=== PATIENT | male | born 1990 | race Hispanic/Latino ===

== ENCOUNTER 2018-10-17 20:11 | Emergency (ER) | payer OTHER | END 2018-10-17 21:13 | disposition home or self-care (01) | LOC: EDH 20:11 | DX: S80.02XA Contusion of left knee, initial encounter (principal); S80.01XA Contusion of right knee, initial encounter; V49.59XA Passenger injured in collision with other motor vehicles in traffic accident, initial encounter; Y93.89 Activity, other specified; Y92.410 Unspecified street and highway as the place of occurrence of the external cause; Y99.8 Other external cause status | CPT/HCPCS: 73560 ==

== ENCOUNTER 2019-04-21 17:54 | Emergency (ER) | payer OTHER ==
[2019-04-21] MEDS ORDERED: LIDOCAINE 5% TOPICAL PATCH TP ONE (18:44)
[2019-04-21] MEDS ORDERED: IBUPROFEN 800 MG TAB ONE (18:44)
[2019-04-21] MEDS ORDERED: CYCLOBENZAPRINE HCL 10 MG TABLET ONE (18:45)
== END 2019-04-21 19:46 | disposition home or self-care (01) ==
LOC: EDH 17:54
DX: M54.5 Low back pain (principal); F90.9 Attention-deficit hyperactivity disorder, unspecified type; Z88.8 Allergy status to other drugs, medicaments and biological substances; V49.49XA Driver injured in collision with other motor vehicles in traffic accident, initial encounter; Y93.89 Activity, other specified; Y92.89 Other specified places as the place of occurrence of the external cause; Y99.8 Other external cause status

== ENCOUNTER 2024-03-12 14:26 | Emergency (ER) | payer SELFPAY ==
[~2024-03-12] VITALS: Ht 175.3 cm; Wt 95.3 kg
--- NOTE | 2024-03-12 15:15 | EKG ---
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
[2024-03-12 15:18] LABS: BASOPHILS # (AUTO) 0.04 K/uL (0.00-0.20); BASOPHILS % (AUTO) 0.3 % (0.0-5.0); EOSINOPHILS # (AUTO) 0.07 K/uL (0.00-0.70); EOSINOPHILS % (AUTO) 0.6 % (0.0-8.0); HEMATOCRIT 41.9 % (42-54); IMMATURE GRANULOCYTE ABSOLUTE 0.05 K/uL (0-1); LYMPHOCYTES # (AUTO) 1.8 K/uL (1.0-4.8); LYMPHOCYTES % (AUTO) 15.1 % (21.0-51.0); MEAN CORPUSCULAR HEMOGLOBIN 29.9 pg (27.0-33.0); MEAN CORPUSCULAR HGB CONC 34.6 g/dL (32.0-36.0); MEAN CORPUSCULAR VOLUME 86.4 fL (79-99); MONOCYTES # (AUTO) 0.5 K/uL (0.1-1.0); MONOCYTES % (AUTO) 4.5 % (3.0-13.0); NEUTROPHILS # (AUTO) 9.4 K/uL (1.8-7.7); NEUTROPHILS % (AUTO) 79.1 % (40.0-77.0); PLATELET COUNT (AUTO) 297 K/uL (130-400); RED BLOOD CELL COUNT(AUTO) 4.85 MIL/uL (4.50-6.20); WHITE BLOOD COUNT (AUTO) 11.8 K/uL (4.8-10.8)
[2024-03-12 15:23] LABS: APPEARANCE,URINE CLEAR (CLEAR); BILIRUBIN,URINE NEGATIVE (NEGATIVE); COLOR,URINE YELLOW (YELLOW); GLUCOSE, URINE (UA) NEGATIVE (NEGATIVE); KETONES,URINE 20 mg/dL (NEGATIVE); LEUKOCYTE ESTERASE ,URINE NEGATIVE Leu/uL (NEGATIVE); NITRATE,URINE NEGATIVE (NEGATIVE); OCCULT BLOOD,URINE NEGATIVE (NEGATIVE); PROTEIN,URINE 10 mg/dL (NEGATIVE); UROBILINOGEN,URINE 0.2 mg/dL (0.2-1.0)
[2024-03-12 15:27] LABS: MUCUS,URINE FEW LPF (None Seen); RBC,URINE 0-1 /HPF (0-1)
[2024-03-12 15:31] LABS: AMPHET/METH SCREEN,URINE NEGATIVE (NEGATIVE); BARBITURATE SCREEN, URINE NEGATIVE (NEGATIVE); BENZODIAZEPINES SCREEN,URINE NEGATIVE (NEGATIVE); CANNABINOID SCREEN,URINE POSITIVE (NEGATIVE); COCAINE SCREEN,URINE NEGATIVE (NEGATIVE); OPIATE SCREEN,URINE NEGATIVE (NEGATIVE); PHENCYCLIDINE SCREEN,URINE NEGATIVE (NEGATIVE)
[2024-03-12 15:31] LABS: CREATININE 0.8 mg/dL (0.5-1.3); POTASSIUM 3.8 mmol/L (3.5-5.1)
--- NOTE | 2024-03-12 15:35 | HMCIMG ---
Exam Type: CHEST 1VW Clinical Information: Chest pain Comparison: None Findings: The lungs are clear of infiltrates. The heart is normal in size. The bony and soft tissue structures of the chest are unremarkable. Impression: Clear lungs.
[2024-03-12 15:36] LABS: ALBUMIN 3.5 g/dL (3.5-5.0); BILIRUBIN,TOTAL 0.4 mg/dL (0.2-1.0); TOTAL PROTEIN, SERUM 6.5 g/dL (6.0-8.3)
[2024-03-12] MEDS ORDERED: POLY17PO4 PO (16:03)
--- NOTE | 2024-03-12 16:03 | ERN ---
General Chief Complaint: Multiple Complaints Stated Complaint: MULTIPLE COMPLAINTS Time Seen by MD: 14:28 Time Seen by Midlevel: 14:28 Source: patient History of Present Illness Initial Comments 33-year-old male who presents to the ED due to not feeling well. Patient reports he woke up feeling his mouth dry, chest pain, abdominal pain, states he has been having some constipation denies any fever, vomiting or further associated symptoms. Denies significant past medical history. Allergies: Coded Allergies: No Known Allergies (Unverified Allergy, Unknown, 10/17/18) amphetamine (Unverified Allergy, Unknown, 04/21/19) dextroamphetamine (Unverified Allergy, Unknown, 04/21/19) Home Meds Active Scripts Polyethylene Glycol 3350 (Miralax) 17 Gram Powd.pack, 17 GM PO DAILY for 7 Days, #7 PACK Prov:CHIDI KRUGER 03/12/24 Past Medical History Past Medical History: No Pertinent History Past Surgical History: None ROS Dictation Constitutional: Positive for dry mouth Negative for fever,chills, and weight loss Eyes: Negative for injury, pain,redness, and discharge ENT: Negative for injury,pain or swelling Cardiovascular: Positive for chest pain Negative for palpitations, and edema Respiratory: Negative for shortness of breath, cough, and wheezing, Abdomen/GI: Positive for abdominal pain, constipation Negative for nausea, vomiting, diarrhea Back: Negative for injury and pain : Negative for painful urination, bleeding or discharge MS/Extremity: Negative for injury and deformity Skin: Negative for rash, and discoloration Neuro: Negative for headache, weakness, numbness, tingling, and seizure Psych: Negative for suicide ideation, homicidal ideation, and hallucinations Physical Exam Physical Exam Dictation General: awake, alert, no acute distress Head/Face: Normocephalic, atraumatic Eyes: PERRL, EOMI, normal conjunctiva ENT: oral cavity clear, oral mucosa moist Neck: Normal range of motion Cardiovascular: RRR, normal S1/S2 Respiratory: CTAB, no respiratory distress, No rales or wheezes Abdomen: Soft, non-tender, non-distended, no guarding or rebound. Skin: Warm, dry, normal turgor, no rash MS/Extremity: Pulses equal, no cyanosis, neurovascular intact, FROM Neuro: COAx4, GCS 15, normal gait Psych: Normal behavior, mood, and affect normal Results Laboratory and Microbiology Lab and Micro Result Laboratory Tests Test 03/12/24 14:39 03/12/24 15:09 Urine Color YELLOW (YELLOW) Urine Appearance CLEAR (CLEAR) Urine pH 6.0 (5.0-8.0) Urine Specific [place] 1.021 (1.001-1.031) Urine Protein 10 mg/dL (NEGATIVE) H Urine Glucose (UA) NEGATIVE mg/dL (NEGATIVE) Urine Ketones 20 mg/dL (NEGATIVE) H Urine Occult Blood NEGATIVE (NEGATIVE) Urine Nitrate NEGATIVE (NEGATIVE) Urine Bilirubin NEGATIVE mg/dL (NEGATIVE) Urine Urobilinogen 0.2 mg/dL (0.2-1.0) Urine Leukocyte Esterase NEGATIVE Jeff/uL Urine RBC 0-1 /HPF (0-1) Urine WBC 2-5 /HPF (0-1) H Urine Bacteria None /HPF (None Seen) Urine Opiates Screen NEGATIVE (NEGATIVE) Urine Barbiturates Screen NEGATIVE (NEGATIVE) Urine Phencyclidine Screen NEGATIVE (NEGATIVE) Urine Amphetamines Screen NEGATIVE (NEGATIVE) Urine Benzodiazepines Screen NEGATIVE (NEGATIVE) Urine Cocaine Screen NEGATIVE (NEGATIVE) Urine Marijuana (THC) Screen POSITIVE (NEGATIVE) H White Blood Count 11.8 K/uL (4.8-10.8) H Red Blood Count 4.85 MIL/uL (4.50-6.20) Hemoglobin 14.5 g/dL (14.0-18.0) Hematocrit 41.9 % (42-54) L Mean Corpuscular Volume 86.4 fL (79-99) Mean Corpuscular Hemoglobin 29.9 pg (27.0-33.0) Mean Corpuscular Hemoglobin Concent 34.6 g/dL (32.0-36.0) Red Cell Distribution Width 13.0 % (11.0-15.5) Platelet Count 297 K/uL (130-400) Mean Platelet Volume 10.1 fL (7.5-10.5) Immature Granulocyte % (Auto) 0.4 % (0-1) Neutrophils (%) (Auto) 79.1 % (40.0-77.0) H Lymphocytes (%) (Auto) 15.1 % (21.0-51.0) L Monocytes (%) (Auto) 4.5 % (3.0-13.0) Eosinophils (%) (Auto) 0.6 % (0.0-8.0) Basophils (%) (Auto) 0.3 % (0.0-5.0) Neutrophils # (Auto) 9.4 K/uL (1.8-7.7) H Lymphocytes # (Auto) 1.8 K/uL (1.0-4.8) Monocytes # (Auto) 0.5 K/uL (0.1-1.0) Eosinophils # (Auto) 0.07 K/uL (0.00-0.70) Basophils # (Auto) 0.04 K/uL (0.00-0.20) Absolute Immature Granulocyte (auto 0.05 K/uL (0-1) Nucleated Red Blood Cells 0.0 % (0.0-0.19) Sodium Level 143 mmol/L (136-145) Potassium Level 3.8 mmol/L (3.5-5.1) Chloride Level 106 mmol/L (101-111) Carbon Dioxide Level 31 mmol/L (21-32) Blood Urea Nitrogen 9 mg/dL (7-18) Creatinine 0.8 mg/dL (0.5-1.3) Glomerular Filtration Rate Calc 119 mL/min (>90) Random Glucose 107 mg/dL (70-105) H Total Calcium 8.5 mg/dL (8.5-10.1) Total Bilirubin 0.4 mg/dL (0.2-1.0) Aspartate Amino Transf (AST/SGOT) 12 U/L (10-37) Alanine Aminotransferase (ALT/SGPT) 22 U/L (12-78) Alkaline Phosphatase 76 U/L (50-136) Troponin I High Sensitivity 4 ng/L (4-75) Total Protein 6.5 g/dL (6.0-8.3) Albumin 3.5 g/dL (3.5-5.0) Lipase 29 U/L (16-77) Labs Reviewed?: Yes EKG/XRAY/US/CT/MRI EKG Comment Date: 03/12/2024 Time: 15:10 Rate: 85 EKG interpretation: Sinus rhythm, normal EKG, no STEMI Reviewed by ED Attending X-RAY Comment REASON: Chest pain ORDERING PHYSICIAN: CHIDI KRUGER PROCEDURE: CXR1VW - CHEST 1VW Exam Type: CHEST 1VW Clinical Information: Chest pain Comparison: None Findings: The lungs are clear of infiltrates. The heart is normal in size. The bony and soft tissue structures of the chest are unremarkable. Impression: Clear lungs. MDM MDM: Differential diagnosis: Anxiety, chest pain, atypical chest pain, constipation Rationale: 33-year-old male who presents to the ED due to not feeling well. Patient reports he woke up feeling his mouth dry, chest pain, abdominal pain, states he has been having some constipation denies any fever, vomiting or fur ther associated symptoms. Denies significant past medical history. Labs obtained in the ED are nonspecific, chest x-ray indicates no acute abnormalities. EKG within normal limits. Troponin negative. UA negative for urinary tract infection. Drug screen positive for marijuana. Patient was educated on findings and diagnosis. Advised to follow up with PCP. Return to the ED if any worsening symptoms. Patient verbalized understanding. Patient stable for discharge. MiraLax prescribed for outpatient treatment of constipation. There are no social concerns with this patient. I independently interpreted the test that were performed, results were reviewed by me and considered findings on radiology if ordered. Medical management and examination interpretation discussions were had by me with other qualified healthcare professionals as indicated for the patient's care. ED Course Orders Procedure Category Date Status Time Cbc With Differential LAB 03/12/24 Complete 14:57 Comprehensive LAB 03/12/24 Complete Metabolic Panel 14:57 Lipase LAB 03/12/24 Complete 14:57 Urinalysis LAB 03/12/24 Complete W/Microscopic 14:57 Drug Screen Urine LAB 03/12/24 Complete 14:57 Chest 1vw RAD 03/12/24 Resulted 14:57 12 Lead Ekg Tracing- EKG 03/12/24 Resulted Technical 14:57 Troponin I High LAB 03/12/24 Complete Sensitivity 14:57 Vital Signs Date Time Temp Pulse Resp B/P (MAP) Pulse Ox O2 Delivery O2 Flow Rate FiO2 03/12/24 16:07 98.1 77 17 128/72 98 Room Air* 0 21 03/12/24 14:27 97.9 77 18 137/87 98 Room Air DX & DISP Disposition: Discharge Departure Impression: Primary Impression: Constipation Additional Impressions: Atypical chest pain, Abdominal pain Condition: Stable Scripts Polyethylene Glycol 3350 (Miralax) 17 Gram Powd.pack 17 GM PO DAILY for 7 Days, #7 PACK Prov: CHIDI KRUGER 03/12/24 Additional Instructions: Discharge home. Rest. Follow up with primary care DrDaria in 24 hours. Return to the ER for any acute changes or worsening symptoms. If any medications were prescribed take as directed. Okay to continue home medications unless otherwise discussed during your visit in the emergency room today. Patient was also advised to follow-up with primary care physician in 1 to 2 days for continued monitoring. Referrals: SELF,REFERRAL (PCP) I participated in the following activities of this patient's care: For this patient encounter, I reviewed the PA or HUMANITIES PROFESSOR documentation, treatment plan, and medical decision making. I did not have [id number] time with this patient. I will sign as the reviewing DrDaria And agree with the treatment plan and disposition. CHIDI KRUGER Mar 12, 2024 16:03
[2024-03-12 16:07] VITALS: BP 128/72; PULSE 77; RESP 17; TEMP 98; O2SAT 98
== END 2024-03-12 16:20 | disposition home or self-care (01) ==
LOC: EDH 14:26
DX: K59.00 Constipation, unspecified (principal); R07.89 Other chest pain; R10.9 Unspecified abdominal pain
CPT/HCPCS: 36415; 71045; 80053; 80305; 81001; 83690; 84484; 85025; 93005; 99285

== ENCOUNTER 2024-03-27 23:00 | Emergency (ER) | payer SELFPAY ==
[~2024-03-27] VITALS: Ht 175.3 cm; Wt 91.2 kg
[~2024-03-27 23:00] MED LIST: POLY17PO4 PO
--- NOTE | 2024-03-27 23:05 | EKG ---
[facility] Test Date: 2024-03-27 Test Time: 23:02:24 Pat Name: KIKI CLINTON Department: ED Room: Gender: M Manager Personal: [id number] : 1990 Requested By: YEIMI KIMBLE Order Number: [id number] Reading MD: Shad Murphy Measurements Intervals [place] Rate: 76 P: 51 AR: 160 QRS: 5 QRSD: 101 T: 37 QT: 378 QTc: 427 Interpretive Statements Sinus rhythm Compared to ECG 03/12/2024 15:10:13 No significant changes Electronically Signed On 03-28-2024 21:23:28 COMFORT ADVISOR by Shad Murphy Please click the below link to view image of tracing.
[2024-03-27 23:21] LABS: BASOPHILS # (AUTO) 0.08 K/uL (0.00-0.20); BASOPHILS % (AUTO) 0.6 % (0.0-5.0); EOSINOPHILS # (AUTO) 0.26 K/uL (0.00-0.70); HEMATOCRIT 44.7 % (42-54); IMMATURE GRANULOCYTE ABSOLUTE 0.06 K/uL (0-1); LYMPHOCYTES # (AUTO) 2.8 K/uL (1.0-4.8); LYMPHOCYTES % (AUTO) 21.8 % (21.0-51.0); MEAN CORPUSCULAR HEMOGLOBIN 30.5 pg (27.0-33.0); MEAN CORPUSCULAR HGB CONC 35.6 g/dL (32.0-36.0); MEAN CORPUSCULAR VOLUME 85.6 fL (79-99); MONOCYTES # (AUTO) 0.9 K/uL (0.1-1.0); MONOCYTES % (AUTO) 6.7 % (3.0-13.0); NEUTROPHILS # (AUTO) 8.7 K/uL (1.8-7.7); NEUTROPHILS % (AUTO) 68.4 % (40.0-77.0); PLATELET COUNT (AUTO) 347 K/uL (130-400); RED BLOOD CELL COUNT(AUTO) 5.22 MIL/uL (4.50-6.20); RED CELL DISTRIBUTION WIDTH 12.3 % (11.0-15.5); WHITE BLOOD COUNT (AUTO) 12.8 K/uL (4.8-10.8)
[2024-03-27 23:31] LABS: CREATININE 0.8 mg/dL (0.5-1.3); POTASSIUM 3.3 mmol/L (3.5-5.1)
[2024-03-28 00:08] LABS: B-TYPE NATRIURETIC PEPTIDE 9 pg/mL (0-100)
[2024-03-28 00:41] VITALS: BP 138/88; PULSE 97; RESP 16; TEMP 98.7; O2SAT 100
--- NOTE | 2024-03-28 00:42 | NUR ---
PT CALLED FOR V/S RECHECK.
[2024-03-28 01:02] LABS: APPEARANCE,URINE CLOUDY (CLEAR); BILIRUBIN,URINE 0.5 mg/dL (NEGATIVE); COLOR,URINE YELLOW (YELLOW); GLUCOSE, URINE (UA) NEGATIVE (NEGATIVE); KETONES,URINE 100 mg/dL (NEGATIVE); LEUKOCYTE ESTERASE ,URINE NEGATIVE Leu/uL (NEGATIVE); NITRATE,URINE NEGATIVE (NEGATIVE); OCCULT BLOOD,URINE NEGATIVE (NEGATIVE); PROTEIN,URINE 50 mg/dL (NEGATIVE); UROBILINOGEN,URINE 3 mg/dL (0.2-1.0)
[2024-03-28 01:04] LABS: ADD UA MICROSCOPIC YES
[2024-03-28 01:08] LABS: AMPHET/METH SCREEN,URINE NEGATIVE (NEGATIVE); BARBITURATE SCREEN, URINE NEGATIVE (NEGATIVE); BENZODIAZEPINES SCREEN,URINE NEGATIVE (NEGATIVE); CANNABINOID SCREEN,URINE POSITIVE (NEGATIVE); COCAINE SCREEN,URINE NEGATIVE (NEGATIVE); OPIATE SCREEN,URINE NEGATIVE (NEGATIVE); PHENCYCLIDINE SCREEN,URINE NEGATIVE (NEGATIVE)
[2024-03-28 01:26] LABS: MUCUS,URINE MANY LPF (None Seen); WBC,URINE 0-1 /HPF (0-1)
--- NOTE | 2024-03-28 02:22 | NUR ---
PT CALLED, NOT IN LOBBY. SECURITY NOT AWARE OF PT
--- NOTE | 2024-03-28 02:25 | NUR ---
PT NOT LOCAED IN MAIN ER, NOT IN LOBBY. NO COMMUNICATION WITH STAFF BY PATIENT ON DESIRE TO LEAVE
--- NOTE | 2024-03-28 02:26 | NUR ---
CALLED DILSHAD UMANA TO NOTIFY HER OF PT. PER DILSHAD UMANA SHE TOO CALLED PT TO BED HIM WITH NO ANSWER
--- NOTE | 2024-03-28 09:05 | HMCIMG ---
CHEST 1VW REASON: CHEST PAIN COMPARISON: 03/12/2024 FINDINGS: Single view of the chest was obtained. Lungs are clear. Heart size is normal. There is no pulmonary vascular congestion. Mediastinum and bony thorax appear unremarkable. IMPRESSION: 1. Normal single view chest x-ray.
[2024-03-28] MEDS ORDERED: HYDR-3421 PO (19:04)
== END 2024-03-28 02:27 | disposition left against medical advice (07) ==
LOC: EDH 23:00
DX: R07.89 Other chest pain (principal); Z53.21 Procedure and treatment not carried out due to patient leaving prior to being seen by health care provider
CPT/HCPCS: 36415; 71045; 80048; 80305; 81001; 82550; 83880; 84484; 85025; 93005

== ENCOUNTER 2024-03-28 16:59 | Emergency (ER) | payer SELFPAY ==
[~2024-03-28] VITALS: Ht 175.3 cm; Wt 90.7 kg
--- NOTE | 2024-03-28 17:46 | ERN ---
ED Note History of Present Illness Stated Complaint: TINGLING HEAD AND NECK Chief Complaint: Numbness Time Seen by MD: 17:03 Time Seen by Midlevel: 17:03 Dictation: The patient is a 33-year-old male with a history of ADHD who presents to the emergency department with complaint of generalized tingling after a someone at work told him that somebody is grandmother due to a dental infection. Patient reports he felt really anxious after and was concerned about his teeth. Denies any suicidal or homicidal ideations. Patient was seen here yesterday for evaluation of chest pain and left AMA. Allergies: Coded Allergies: No Known Allergies (Unverified Allergy, Unknown, 10/17/18) amphetamine (Unverified Allergy, Unknown, 04/21/19) dextroamphetamine (Unverified Allergy, Unknown, 04/21/19) Home Meds Active Scripts Hydroxyzine HCl (Hydroxyzine HCl) 25 Mg Tablet, 1 TAB PO BID for anxiety for 30 Days, #60 TAB 0 Refills Prov:SHARDA SANCHEZ 03/28/24 Polyethylene Glycol 3350 (Miralax) 17 Gram Powd.pack, 17 GM PO DAILY for 7 Days, #7 PACK Prov:CHIDI KRUGER 03/12/24 Past Medical History Past Medical History: Anxiety Surgical History: Other Surgical History Other: ORAL RN Note Reviewed/Agreed w/PFSH: Yes Review of System Dictation Constitutional: Negative for fever,chills, and weight loss Eyes: Negative for injury, pain,redness, and discharge ENT: Negative for injury,pain or swelling Cardiovascular: Negative for chest pain, palpitations, and edema Respiratory: Negative for shortness of breath, cough, and wheezing, Abdomen/GI: Negative for abdominal pain, nausea, vomiting, diarrhea, and constipation Back: Negative for injury and pain : Negative for injury, bleeding and discharge MS/Extremity: Negative for injury and deformity Skin: Negative for rash, and discoloration Neuro: Positive for numbness and tingling sensation Negative for headache, weakness, and seizure Psych: Negative for suicide ideation, homicidal ideation, and hallucinations Initial Vital Sign VS Vital Signs Date Time Temp Pulse Resp B/P (MAP) Pulse Ox O2 Delivery O2 Flow Rate FiO2 03/28/24 17:33 98.1 67 18 138/108 96 Room Air 03/28/24 17:43 0 21 Physical Exam Dictation General: awake, alert, NAD Head/Face: Normocephalic, atraumatic Eyes: PERRL, EOMI, vision at baseline ENT: oral cavity clear, TMs clear, no signs of infection Neck: Trachea midline, supple, no nuchal rigidity Cardiovascular: RRR, normal S1/S2, No MRGs, no JVD Respiratory: CTAB, no respiratory distress, No rales or wheezes Abdomen: Soft, non-tender, non-distended, normal bowel sounds, no guarding or rebound. Skin: Warm, dry, normal turgor, no rash MS/Extremity: Pulses equal, no cyanosis, neurovascular intact, FROM Neuro: COAx4, GCS 15, strength 5/5, CN 2-12 intact, normal cerebellar exam, normal gait, Psych: Normal behavior, mood, and affect normal Results (Laboratory/Radiology) Labs Reviewed?: Yes ED Course ED Course Orders Procedure Category Date Status Time Hydroxyzine 25mg Tab PHA 03/28/24 Complete (Atarax 25mg Tab) 18:30 Current Medications Medications (Trade) Dose Ordered Sig/Antonio Route PRN Reason Start Time Stop Time Status Last Admin Dose Admin Hydroxyzine HCl (ATArax 25MG TAB) 25 mg ONCE PO 03/28/24 18:30 03/28/24 19:25 DC 03/28/24 19:19 Vital Signs Date Time Temp Pulse Resp B/P (MAP) Pulse Ox O2 Delivery O2 Flow Rate FiO2 03/28/24 18:53 98.1 67 18 138/108 99 Room Air* 0 21 03/28/24 17:43 98.1 67 18 138/108 96 Room Air* 0 21 03/28/24 17:33 98.1 67 18 138/108 96 Room Air Medical Decision Making MDM MDM: The patient is a 33-year-old male with a history of ADHD who presents to the emergency department with complaint of generalized tingling after a someone at work told him that somebody is grandmother due to a dental infection. Patient reports he felt really anxious after and was concerned about his teeth. Denies any suicidal or homicidal ideations. Denies any fevers. Patient with no caries noted to tooth. Instructed to follow up with dentist. Reports he has a appointment tomorrow with his PCP. Patient no acute distress, nontoxic appearance. Patient does appear anxious. I reviewed labs and EKG from yesterday. Patient with no apparent emergency. Neurologically intact. Patient's mouth unremarkable. No dental caries Differential diagnosis: Anxiety, dental caries, tooth ache Need for hospitalization: Patient does not meet criteria for hospitalization. There are no social concerns with this patient. DX & DISP Disposition: Discharge Departure Impression: Primary Impression: Anxiety Condition: Stable Scripts Hydroxyzine HCl (Hydroxyzine HCl) 25 Mg Tablet 1 TAB PO BID for anxiety for 30 Days, #60 TAB 0 Refills Prov: SHARDA SANCHEZ 03/28/24 Additional Instructions: FOLLOW-UP WITH PRIMARY CARE PROVIDER IN 1 TO 2 DAYS. TAKE MEDICATIONS DIRECTED HERE IN THE EMERGENCY ROOM. OKAY TO CONTINUE HOME MEDICATIONS UNLESS OTHERWISE DISCUSSED DURING YOUR VISIT IN THE EMERGENCY ROOM TODAY. RETURN TO YOUR NEAREST EMERGENCY ROOM IF SYMPTOMS WORSEN OR IF THERE IS NO IMPROVEMENT. CALL 911 IF YOU NEED IMMEDIATE ASSISTANCE. TAKE TYLENOL OR MOTRIN OVER-THE- COUNTER NEEDED AND IF NO CONTRAINDICATIONS ARE PRESENT. INCREASE ORAL HYDRATION. A WOUND CULTURE OR URINE CULTURE WAS ORDERED HERE IN THE EMERGENCY ROOM DEPARTMENT PLEASE FOLLOW-UP WITH PRIMARY CARE PROVIDER AND ADVISE THEM TO GET REPEAT PORTS FROM OUR FACILITY. IF YOU HAD ANY MOUNIKA WRAP/SPLINTS THAT WERE APPLIED HERE, PLEASE DO NOT REMOVE THEM UNTIL YOU SEE YOUR PRIMARY CARE OR SPECIALTY. Referrals: SELF,REFERRAL (PCP) Time of Disposition: 19:04 I have reviewed, & agreed with my scribe's, documentation. (Entered by Barbra Singh, acting as a scribe for ERICH Sanchez) I have reviewed the case, and I agree with, Diagnosis and Plan I personally scribed for SHARDA SANCHEZ ([email or web address]) on 03/28/24 at 17:46. Electronically submitted by Barbra Singh ([email or web address]). SHARDA SANCHEZ Mar 28, 2024 17:46
[2024-03-28 18:53] VITALS: BP 138/108; PULSE 67; RESP 18; TEMP 98; O2SAT 99
[2024-03-28] MEDS ORDERED: HYDR-3421 PO (19:04)
[2024-03-28] MEDS: hydrOXYzine 25 MG TABLET PO SCH (19:19)
== END 2024-03-28 19:25 | disposition home or self-care (01) ==
LOC: EDH 16:59
DX: F41.9 Anxiety disorder, unspecified (principal)
CPT/HCPCS: 99283